=== PATIENT | female | born 1980 | race Caucasian/White ===

== ENCOUNTER 2016-11-24 23:19 | Emergency (ER) | payer MEDICAID ==
[2016-11-25 00:15] VITALS: BP 125/86
== END 2016-11-25 00:15 | disposition home or self-care (01) ==
LOC: ED 23:19
DX: S61.250A Open bite of right index finger without damage to nail, initial encounter (principal); W50.3XXA Accidental bite by another person, initial encounter; Y93.01 Activity, walking, marching and hiking; Y99.8 Other external cause status; Y92.488 Other paved roadways as the place of occurrence of the external cause

== ENCOUNTER 2017-06-30 15:15 | Emergency (ER) | payer MEDICAID ==
[2017-06-30 16:30] VITALS: BP 122/62
== END 2017-06-30 16:30 | disposition home or self-care (01) ==
LOC: ED 15:15
DX: S92.405A Nondisplaced unspecified fracture of left great toe, initial encounter for closed fracture (principal); S93.602A Unspecified sprain of left foot, initial encounter; E03.9 Hypothyroidism, unspecified; X58.XXXA Exposure to other specified factors, initial encounter; Y93.89 Activity, other specified; Y99.8 Other external cause status; Y92.89 Other specified places as the place of occurrence of the external cause

== ENCOUNTER 2018-01-20 13:47 | Emergency (ER) | payer MEDICAID ==
[~2018-01-20] VITALS: Ht 170.2 cm; Wt 82.1 kg
[2018-01-20 13:58] VITALS: Ht 170.2 cm; Wt 82.1 kg
[2018-01-20 14:58] LABS: CALCIUM 8.6 mg/dL (8.5-10.1); CARBON DIOXIDE 21.7 mmol/L (21-32); CHLORIDE SERUM 107 mmol/L (98-107); CREATININE SERUM 0.5 mg/dL (0.6-1.0); GFR1 > 60 mL/min; GLUCOSE SERUM 106 mg/dL (74-106); POTASSIUM SERUM 3.6 mmol/L (3.5-5.1); SODIUM SERUM 141 mmol/L (136-145)
[2018-01-20 15:02] LABS: ALBUMIN 2.7 g/dL (3.4-5.0); ALKALINE PHOSPHATASE 75 U/L (46-116); ALT/SGPT 21 U/L (14-59); AST/SGOT 25 U/L (15-37); BILIRUBIN TOTAL 0.24 mg/dL (0.20-1.00); LIPASE 83 IU/L (73-393); TOTAL PROTEIN, SERUM 6.9 g/dL (6.4-8.2)
[2018-01-20 15:33] VITALS: BP 119/73
== END 2018-01-20 15:33 | disposition home or self-care (01) ==
LOC: ED 13:47
PROVIDERS: Emergency Medicine
DX: O26.892 Other specified pregnancy related conditions, second trimester (principal); R10.10 Upper abdominal pain, unspecified; J45.909 Unspecified asthma, uncomplicated; E03.9 Hypothyroidism, unspecified; Z3A.26 26 weeks gestation of pregnancy

== ENCOUNTER 2018-06-03 15:07 | Emergency (ER) | payer MEDICAID ==
[~2018-06-03] VITALS: Ht 172.7 cm; Wt 82.1 kg
[2018-06-03 15:14] VITALS: Ht 172.7 cm; Wt 82.1 kg
[2018-06-03 16:17] LABS: microscopic required? NO
[2018-06-03 16:29] LABS: urine erythrocyte NEGATIVE (NEGATIVE)
[2018-06-03 18:47] VITALS: BP 117/78
== END 2018-06-03 18:47 | disposition home or self-care (01) ==
LOC: ED 15:07
PROVIDERS: Emergency Medicine
DX: K59.00 Constipation, unspecified (principal); F41.9 Anxiety disorder, unspecified; E03.9 Hypothyroidism, unspecified

== ENCOUNTER 2018-07-29 19:29 | Emergency (ER) | payer MEDICAID ==
[~2018-07-29] VITALS: Ht 170.2 cm; Wt 83.0 kg
[2018-07-29 19:46] VITALS: Ht 170.2 cm; Wt 83.0 kg
[2018-07-29 20:13] VITALS: BP 115/70
== END 2018-07-29 20:13 | disposition home or self-care (01) ==
LOC: ED 19:29
DX: H60.91 Unspecified otitis externa, right ear (principal); J45.909 Unspecified asthma, uncomplicated; E03.9 Hypothyroidism, unspecified

== ENCOUNTER 2018-10-11 18:38 | Emergency (ER) | payer MEDICAID ==
[~2018-10-11] VITALS: Ht 172.7 cm; Wt 81.6 kg
[2018-10-11 18:52] VITALS: Ht 172.7 cm; Wt 81.6 kg
[2018-10-11 20:45] VITALS: BP 143/96
== END 2018-10-11 20:45 | disposition home or self-care (01) ==
LOC: ED 18:38
DX: J45.909 Unspecified asthma, uncomplicated (principal); E03.9 Hypothyroidism, unspecified
CPT/HCPCS: J7613

== ENCOUNTER 2019-05-02 19:56 | Emergency (ER) | payer MEDICAID ==
[~2019-05-02] VITALS: Ht 170.2 cm; Wt 83.9 kg
[2019-05-02 20:16] VITALS: Ht 170.2 cm; Wt 83.9 kg
[2019-05-02 21:25] VITALS: BP 117/77
== END 2019-05-02 21:50 | disposition home or self-care (01) ==
LOC: ED 19:56
DX: J02.9 Acute pharyngitis, unspecified (principal); J45.909 Unspecified asthma, uncomplicated; E03.9 Hypothyroidism, unspecified
CPT/HCPCS: J1885

== ENCOUNTER 2019-06-04 18:06 | Emergency (ER) | payer MEDICAID ==
[~2019-06-04] VITALS: Ht 172.7 cm; Wt 82.1 kg
[2019-06-04 18:44] VITALS: Ht 172.7 cm; Wt 82.1 kg
[2019-06-04 20:54] VITALS: BP 126/83
== END 2019-06-04 20:54 | disposition home or self-care (01) ==
LOC: ED 18:06
DX: J03.90 Acute tonsillitis, unspecified (principal); R51 Headache; J45.909 Unspecified asthma, uncomplicated
CPT/HCPCS: J2920

== ENCOUNTER 2020-04-14 21:05 | Emergency (ER) | payer MEDICAID ==
[~2020-04-14] VITALS: Ht 172.7 cm; Wt 92.1 kg
[2020-04-14 21:22] VITALS: Ht 172.7 cm; Wt 92.1 kg
[2020-04-14 23:25] VITALS: BP 130/85
== END 2020-04-14 23:25 | disposition home or self-care (01) ==
LOC: ED 21:05
DX: S60.562A Insect bite (nonvenomous) of left hand, initial encounter (principal); L03.114 Cellulitis of left upper limb; J45.909 Unspecified asthma, uncomplicated; E03.9 Hypothyroidism, unspecified; W57.XXXA Bitten or stung by nonvenomous insect and other nonvenomous arthropods, initial encounter; Y93.89 Activity, other specified; Y92.89 Other specified places as the place of occurrence of the external cause; Y99.8 Other external cause status
CPT/HCPCS: J0690